=== PATIENT | female | born 1965 | race Two or more races ===

== ENCOUNTER 2024-09-26 17:35 | Emergency (ER) | payer SELFPAY ==
[~2024-09-26] VITALS: Ht 152.4 cm; Wt 81.2 kg
[2024-09-26 18:08] VITALS: TEMP 98.2
[2024-09-26] MEDS ORDERED: KETOROLAC TROMETHAMINE INJ 30 MG/ML VIAL ONE (21:20)
[2024-09-26] MEDS ORDERED: ACETAMINOPHEN 325 MG TABLET ONE (21:20)
[2024-09-26] MEDS: KETOROLAC TROMETHAMINE INJ 30 MG/ML VIAL IM ONE (21:23)
[2024-09-26] MEDS: ACETAMINOPHEN 325 MG TABLET PO ONE (21:23)
[2024-09-26] MEDS ORDERED: IBUP-1953 PO (22:39)
[2024-09-26] MEDS ORDERED: ACET325C7 PO (22:39)
[2024-09-27 00:50] VITALS: BP 153/79; O2SAT 96
== END 2024-09-27 00:51 | disposition home or self-care (01) ==
LOC: ER 17:37
DX: S43.085A Other dislocation of left shoulder joint, initial encounter (principal); F17.200 Nicotine dependence, unspecified, uncomplicated; M79.602 Pain in left arm; M79.642 Pain in left hand; Z60.2 Problems related to living alone; W22.8XXA Striking against or struck by other objects, initial encounter; Y93.89 Activity, other specified; Y92.89 Other specified places as the place of occurrence of the external cause; Y99.8 Other external cause status
CPT/HCPCS: 99284; 96372; 73080; 73030; 73110; J1885